=== PATIENT | male | born 1960 | race Two or more races ===

== ENCOUNTER 2019-02-04 04:47 | Emergency (ER) | payer OTHER, MEDICAID ==
[~2019-02-04] VITALS: Ht 160 cm; Wt 61.7 kg
[2019-02-04 04:57] VITALS: BP 154/88
--- NOTE | 2019-02-04 05:11 | NUR ---
PT BIB [employer]. UPON ARRIVING PT WAS RELEASED FROM [facility]. PT TO ER BED 3. AAOX4. NO SOB, BREATHING EVEN AND UNLABORED. AMBULATORY. C/O LEFT FLANK PAIN X 10 DAY 07/23. AT BEDSIDE FOR EVAL.
[2019-02-04] MEDS ORDERED: IBUPROFEN 600 MG TABLET PO ONE ×2 (05:19→05:30)
--- NOTE | 2019-02-04 05:27 | NUR ---
URINE SPECIMEN COLLECTED AND SENT TO LAB
[2019-02-04 05:30] LABS: APPEARANCE,URINE Clear (CLEAR); BILIRUBIN,URINE Negative (NEGATIVE); BLOOD, URINE Trace-intact Ery/uL (NEGATIVE); COLOR,URINE Yellow (YELLOW); KETONES,URINE Negative (NEGATIVE); LEUKOCYTE ESTERASE ,URINE Negative (NEGATIVE); NITRITE, URINE Negative (NEGATIVE); PH,URINE 6.5 (5.0-8.0); PROTEIN,URINE Negative (NEGATIVE); UGLUCOSE Negative (NEGATIVE)
[2019-02-04 05:40] LABS: BACTERIA,URINE None seen /HPF (None Seen); RBC,URINE 0-2 /HPF (0-2); SQUAMOUS EPITHELIAL CELL,UR Few /HPF (None Seen); WBC,URINE 0-2 /HPF (0-3)
--- NOTE | 2019-02-04 05:53 | NUR ---
Patient discharged to home in stable condition. Written and verbal after care instructions given. Patient verbalizes understanding of instruction.
== END 2019-02-04 05:53 | disposition home or self-care (01) ==
LOC: ER 04:49
DX: R10.12 Left upper quadrant pain (principal); R10.32 Left lower quadrant pain; E11.9 Type 2 diabetes mellitus without complications; V49.69XA Unspecified car occupant injured in collision with other motor vehicles in traffic accident, initial encounter; Y93.89 Activity, other specified; Y92.413 State road as the place of occurrence of the external cause; Y99.8 Other external cause status
CPT/HCPCS: 81000-TC; 82962-TC